=== PATIENT | male | born 1950 | race Caucasian/White ===

== ENCOUNTER 2018-01-04 08:43 | Outpatient (CLI) | payer MEDICARE, MEDICAID ==
[~2018-01-04] VITALS: Ht 179.1 cm; Wt 104.3 kg
[~2018-01-04 08:43] MED LIST: ACET-1015 PO; ALBU18HF2 INH; ATR0.5NEB IH; CETI-1 PO; CYCL-1 PO; DOCU-28 PO; FLUT16SP26 BOTHNARES; GABA-338 PO; GABA600T2 PO; LISI1TAB11 PO; MOME13HF IH; MONT10TA24 PO; MULT-1085 PO; OMEP20CA10 PO; SPIIN INH; TRAM50TA2 PO
[2018-01-04] MEDS ORDERED: albuterol 2.5 MG/3 ML nebule NEB ONE (09:20)
== END 2018-01-04 23:59 | disposition home or self-care (01) ==
LOC: RT 08:43
PROVIDERS: ATTEND Family Medicine
DX: J44.9 Chronic obstructive pulmonary disease, unspecified (principal); R06.09 Other forms of dyspnea; R05 Cough; F17.210 Nicotine dependence, cigarettes, uncomplicated
CPT/HCPCS: 94060; 94640; 94729

== ENCOUNTER 2018-01-30 15:11 | Emergency (ER) | payer MEDICARE, MEDICAID ==
[~2018-01-30] VITALS: Ht 180.3 cm; Wt 95.5 kg
[2018-01-30 15:53] LABS: BASOPHILS % (AUTO) 0.3 % (0-1); EOSINOPHILS # (AUTO) 0.3 X10'3 (0-0.9); EOSINOPHILS % (AUTO) 2.4 % (0-6); HEMATOCRIT 35.1 % (42.0-52.0); LYMPHOCYTES % (AUTO) 8.2 % (21-51); MEAN CORPUSCULAR HEMOGLOBIN 31.1 PG (27.0-31.0); MEAN CORPUSCULAR HGB CONC 34.3 % (33.0-36.5); MEAN CORPUSCULAR VOLUME 90.9 FL (78-98); MEAN PLATELET VOLUME 5.9 FL (7.4-10.4); MONOCYTES # (AUTO) 1.1 X10'3 (0-0.9); MONOCYTES % (AUTO) 8.8 % (2-12); NEUTROPHILS # (AUTO) 9.6 X10'3 (1.8-7.7); NEUTROPHILS % (AUTO) 80.3 % (42-75); PLATELET COUNT 454 X10'3 (140-440); RED BLOOD COUNT 3.86 X10'6 (4.70-6.10); RED CELL DISTRIBUTION WIDTH 13.7 % (11.5-14.5); WHITE BLOOD COUNT 11.9 X10'3 (4.5-11.0)
[2018-01-30 16:08] LABS: ALANINE AMINOTRANSFERASE 34 U/L (12-78); ALBUMIN/GLOBULIN RATIO 0.8 (1.1-1.5); ALKALINE PHOSPHATASE 75 IU/L (46-116); ANION GAP 15 (8-16); ASPARTATE AMINO TRANSFERASE 22 U/L (10-37); BILIRUBIN,TOTAL 0.6 MG/DL (0.1-1.0); BLOOD UREA NITROGEN 9 MG/DL (7-18); BUN/CREATININE RATIO 5.7 (5.4-32.0); CALCIUM 8.7 MG/DL (8.5-10.1); CHLORIDE 93 MMOL/L (99-107); CREATINE KINASE 123 U/L (39-308); CREATININE 1.57 MG/DL (0.60-1.10); GLUCOSE 120 MG/DL (70-104); SODIUM 131 MMOL/L (135-145); eGFR 44 ML/MIN
[2018-01-30] MEDS ORDERED: potassium Cl oral solution 20 MEQ/15 ML PO ONE (16:15)
[2018-01-30] MEDS ORDERED: normal saline 1000ml 1,000 ML IV SCH (16:15)
[2018-01-30] MEDS ORDERED: methylPREDNISolone sod succ 125mg/2ml vial IV ONE (16:20)
[2018-01-30] MEDS ORDERED: ipratropium/albuterol 3ml nebule NEB ONE (16:20)
[2018-01-30] MEDS ORDERED: PRED20TA PO (16:21)
[2018-01-30] MEDS ORDERED: LEVO500T89 PO (16:21)
[2018-01-30 16:49] VITALS: BP 132/66
== END 2018-01-30 17:39 | disposition home or self-care (01) ==
LOC: ER 15:11
DX: E86.0 Dehydration (principal); N28.9 Disorder of kidney and ureter, unspecified; E87.6 Hypokalemia; R55 Syncope and collapse; J20.9 Acute bronchitis, unspecified; J44.9 Chronic obstructive pulmonary disease, unspecified; Z88.0 Allergy status to penicillin; Z91.040 Latex allergy status; Z79.899 Other long term (current) drug therapy
CPT/HCPCS: 36415; 71045; 80053; 82550; 83605; 85025; 87040; 93005; 94640; 94760; 96374; 99285; J2930

== ENCOUNTER 2018-02-17 16:20 | Emergency (ER) | payer MEDICARE, MEDICAID ==
[~2018-02-17] VITALS: Wt 97.7 kg
[~2018-02-17 16:20] MED LIST changes: -ACET-1015 PO; -ATR0.5NEB IH; -CETI-1 PO; -MULT-1085 PO; -TRAM50TA2 PO
[2018-02-17 17:29] LABS: BASOPHILS # (AUTO) 0.1 X10'3 (0-0.2); BASOPHILS % (AUTO) 0.6 % (0-1); EOSINOPHILS # (AUTO) 0.2 X10'3 (0-0.9); EOSINOPHILS % (AUTO) 1.7 % (0-6); HEMATOCRIT 35.5 % (42.0-52.0); HEMOGLOBIN 12.1 g/dl (14.0-17.9); LYMPHOCYTES # (AUTO) 1.4 X10'3 (1.1-4.8); LYMPHOCYTES % (AUTO) 11.9 % (21-51); MEAN CORPUSCULAR HEMOGLOBIN 31.1 PG (27.0-31.0); MEAN CORPUSCULAR VOLUME 91.5 FL (78-98); MEAN PLATELET VOLUME 6.9 FL (7.4-10.4); MONOCYTES # (AUTO) 1.3 X10'3 (0-0.9); MONOCYTES % (AUTO) 11.2 % (2-12); NEUTROPHILS # (AUTO) 8.6 X10'3 (1.8-7.7); NEUTROPHILS % (AUTO) 74.6 % (42-75); PLATELET COUNT 439 X10'3 (140-440); RED BLOOD COUNT 3.88 X10'6 (4.70-6.10); RED CELL DISTRIBUTION WIDTH 14.5 % (11.5-14.5); WHITE BLOOD COUNT 11.5 X10'3 (4.5-11.0)
[2018-02-17 17:53] LABS: ALANINE AMINOTRANSFERASE 27 U/L (12-78); ALBUMIN 3.3 G/DL (3.4-5.0); ALBUMIN/GLOBULIN RATIO 0.9 (1.1-1.5); ALKALINE PHOSPHATASE 75 IU/L (46-116); ANION GAP 13 (8-16); ASPARTATE AMINO TRANSFERASE 23 U/L (10-37); BILIRUBIN,TOTAL 0.7 MG/DL (0.1-1.0); BLOOD UREA NITROGEN 13 MG/DL (7-18); BUN/CREATININE RATIO 9.2 (5.4-32.0); CALCIUM 9.1 MG/DL (8.5-10.1); CHLORIDE 102 MMOL/L (99-107); CREATININE 1.41 MG/DL (0.60-1.10); ETHANOL < 0.010 GM/DL (0.0-0.010); GLUCOSE 121 MG/DL (70-104); SODIUM 142 MMOL/L (135-145); TOTAL CARBON DIOXIDE 26.9 MMOL/L (24-32); eGFR 50 ML/MIN
[2018-02-17] MEDS ORDERED: normal saline 1000ML IV soln IVB ONE (18:05)
[2018-02-17] MEDS ORDERED: potassium Cl oral solution 20 MEQ/15 ML PO ONE (18:15)
[2018-02-17] MEDS ORDERED: LORazepam 2 mg/ml vial IM ONE (18:40)
[2018-02-17 19:16] LABS: URINE AMPHETAMINE SCREEN NEGATIVE (Neg); URINE BARBITUATE SCREEN NEGATIVE (Neg); URINE BENZODIAZEPINES SCREEN NEGATIVE (Neg); URINE CANNABINOID SCREEN POSITIVE (Neg); URINE COCAINE SCREEN NEGATIVE (Neg); URINE METHADONE SCREEN NEGATIVE (Neg); URINE OPIATE SCREEN NEGATIVE (Neg); URINE PHENCYCLIDINE SCREEN NEGATIVE (Neg)
[2018-02-17 19:21] LABS: CLARITY,URINE CLEAR (Clear); COLOR,URINE YELLOW (Yellow); GLUCOSE, URINE NEGATIVE (Neg); KETONES,URINE 40 mg/dl (Neg); LEUKOCYTE ESTERASE ,URINE NEGATIVE (Neg); NITRITES, URINE NEGATIVE (Neg); OCCULT BLOOD,URINE NEGATIVE (Neg); PROTEIN,URINE TRACE mg/dl (Neg); UROBILINOGEN,URINE 0.2 E.U/dL (0.2-1.0)
[2018-02-17 19:28] LABS: UA COLLECTION TYPE CLN CATCH MIDSTREAM
[2018-02-17 19:36] LABS: RBC,URINE NONE SEEN /HPF (0-2); WBC,URINE 0-4 /HPF (0-4)
[2018-02-17 19:37] LABS: BACTERIA,URINE NONE SEEN /HPF (Neg); HYALINE CASTS 0-3 /LPF (NEGATIVE); MUCUS STRANDS NONE SEEN /LPF (Neg); SQUAMOUS EPITHELIAL CELL,UR FEW /LPF (FEW)
[2018-02-17] MEDS ORDERED: cyclobenzaprine 10mg tablet PO PRN (20:15)
[2018-02-17] MEDS ORDERED: gabapentin 300mg capsule PO SCH (21:00)
[2018-02-17] MEDS: docusate sod 100mg capsule PO SCH (21:13)
[2018-02-17] MEDS: gabapentin 300mg capsule PO SCH (21:14)
[2018-02-17] MEDS ORDERED: magnesium oxide 400mg tablet PO ONE (23:30)
[2018-02-17] MEDS ORDERED: risperiDONE 0.5mg tablet PO ONE (23:35)
[2018-02-17] MEDS ORDERED: LORazepam 1 MG tablet PO ONE (23:35)
[2018-02-17 23:57] LABS: MAGNESIUM 1.1 MG/DL (1.5-2.4)
[2018-02-18] MEDS: ziprasidone 20mg capsule PO SCH ×3 (00:01→20:25)
[2018-02-18] MEDS ORDERED: LORazepam 1 MG tablet PO PRN (00:10)
[2018-02-18] MEDS: ipratropium 0.5 MG/2.5ML nebule IH SCH ×4 (02:00→19:09)
[2018-02-18] MEDS: albuterol 2.5 MG/3 ML nebule NEB SCH ×4 (07:00→19:08)
[2018-02-18] MEDS ORDERED: risperiDONE 0.5mg tablet PO ONE (08:00)
[2018-02-18] MEDS: fluticasone nasal spray 16GM bottle NS SCH (08:00)
[2018-02-18] MEDS: HYDROchlorothiazide 12.5mg capsule PO SCH (08:18)
[2018-02-18] MEDS: gabapentin 300mg capsule PO SCH ×4 (08:18→20:25)
[2018-02-18] MEDS: lisinopril 20mg tablet PO SCH (08:18)
[2018-02-18] MEDS: pantoprazole 40mg Tablet.DR PO SCH (08:18)
[2018-02-18] MEDS: montelukast 10mg tablet PO SCH (08:18)
[2018-02-18] MEDS: fluticasone/vilanterol 200mcg/25mcg inhaler IH SCH (09:47)
[2018-02-18] MEDS: docusate sod 100mg capsule PO SCH (20:25)
[2018-02-19] MEDS: ipratropium 0.5 MG/2.5ML nebule IH SCH ×2 (02:55→09:02)
[2018-02-19] MEDS: lisinopril 20mg tablet PO SCH (07:29)
[2018-02-19] MEDS: HYDROchlorothiazide 12.5mg capsule PO SCH (07:29)
[2018-02-19] MEDS: montelukast 10mg tablet PO SCH (07:29)
[2018-02-19] MEDS: ziprasidone 20mg capsule PO SCH ×2 (07:29→20:06)
[2018-02-19] MEDS: pantoprazole 40mg Tablet.DR PO SCH (07:29)
[2018-02-19] MEDS: gabapentin 300mg capsule PO SCH ×4 (07:29→20:06)
[2018-02-19] MEDS: fluticasone nasal spray 16GM bottle NS SCH (07:30)
[2018-02-19] MEDS: albuterol 2.5 MG/3 ML nebule NEB SCH (08:57)
[2018-02-19] MEDS: fluticasone/vilanterol 200mcg/25mcg inhaler IH SCH (09:11)
[2018-02-19] MEDS ORDERED: ipratropium 0.5 MG/2.5ML nebule IH PRN (09:40)
[2018-02-19] MEDS ORDERED: albuterol 2.5 MG/3 ML nebule NEB PRN (09:40)
[2018-02-19] MEDS: ipratropium/albuterol 3ml nebule NEB SCH ×3 (09:43→20:45)
[2018-02-19] MEDS ORDERED: potassium Cl 20 mEq SR tablet PO ONE (12:15)
[2018-02-19] MEDS: docusate sod 100mg capsule PO SCH (20:06)
[2018-02-20] MEDS: ipratropium/albuterol 3ml nebule NEB SCH ×2 (03:23→08:29)
[2018-02-20] MEDS: fluticasone nasal spray 16GM bottle NS SCH (08:02)
[2018-02-20] MEDS: montelukast 10mg tablet PO SCH (08:02)
[2018-02-20] MEDS: HYDROchlorothiazide 12.5mg capsule PO SCH (08:02)
[2018-02-20] MEDS: ziprasidone 20mg capsule PO SCH (08:02)
[2018-02-20] MEDS: lisinopril 20mg tablet PO SCH (08:02)
[2018-02-20] MEDS: pantoprazole 40mg Tablet.DR PO SCH (08:02)
[2018-02-20] MEDS: gabapentin 300mg capsule PO SCH (08:03)
[2018-02-20] MEDS: fluticasone/vilanterol 200mcg/25mcg inhaler IH SCH (08:28)
[2018-02-20 08:45] VITALS: BP 157/88
== END 2018-02-20 08:49 | disposition home or self-care (01) ==
LOC: ER 16:21
DX: R41.82 Altered mental status, unspecified (principal); E87.6 Hypokalemia; Z88.0 Allergy status to penicillin; Z79.899 Other long term (current) drug therapy
CPT/HCPCS: 36415; 70450; 80053; 80305; 80320; 80329; 81001; 83735; 84132; 84443; 84484; 85025; 94640; 94760; 96372; 99285; J2060; J7030; A4310; A4344

== ENCOUNTER 2018-02-20 08:30 | Inpatient (IN) | payer MEDICARE, MEDICAID ==
[~2018-02-20] VITALS: Ht 180.3 cm; Wt 97.7 kg
[2018-02-20] MEDS: ipratropium 0.5 MG/2.5ML nebule IH SCH ×4 (10:10→16:56)
[2018-02-20] MEDS ORDERED: mag hydrox/Alum hydrox/simeth 30ml oral suspension PO PRN (10:15)
[2018-02-20] MEDS ORDERED: magnesium hydroxide 30ml (MOM) UD suspension PO PRN (10:15)
[2018-02-20] MEDS ORDERED: acetaminophen 325mg tablet PO PRN (10:15)
[2018-02-20 11:07] VITALS: BP 131/87
[2018-02-20] MEDS: albuterol 2.5 MG/3 ML nebule NEB SCH ×2 (13:00→15:00)
[2018-02-20] MEDS ORDERED: gabapentin 300mg capsule PO SCH ×2 (13:00)
[2018-02-20] MEDS ORDERED: ipratropium/albuterol 3ml nebule NEB SCH (17:00)
[2018-02-20] MEDS: ipratropium/albuterol 3ml nebule NEB SCH (19:08)
[2018-02-20 19:32] VITALS: BP 132/92
[2018-02-20] MEDS ORDERED: olanzapine 10mg tablet PO SCH (21:00)
[2018-02-20] MEDS ORDERED: olanzapine 10mg tablet PO PRN (21:00)
[2018-02-20] MEDS: gabapentin 300mg capsule PO SCH (21:14)
[2018-02-20] MEDS: docusate sod 100mg capsule PO SCH (21:15)
[2018-02-20] MEDS: LORazepam 1 MG tablet PO PRN (23:10)
[2018-02-20] MEDS: cyclobenzaprine 10mg tablet PO PRN (23:10)
[2018-02-20] MEDS: traZODone 50mg tablet PO PRN (23:11)
[2018-02-21] MEDS: pantoprazole 40mg Tablet.DR PO SCH (07:08)
[2018-02-21] MEDS: ipratropium/albuterol 3ml nebule NEB SCH ×4 (07:13→19:21)
[2018-02-21 07:26] LABS: HEMOGLOBIN A1C 6.2 % (4.5-6.2)
[2018-02-21 07:27] LABS: CHOL/HDL RATIO 3.8 (0.00-4.99); CHOLESTEROL 138 MG/DL (0-200); HDL CHOLESTEROL 36 MG/DL (35-60); LDL CHOLESTEROL 84 MG/DL (50-100); TRIGLYCERIDES 86 MG/DL (20-135)
[2018-02-21 08:00] VITALS: BP 156/83
[2018-02-21] MEDS ORDERED: fluticasone/vilanterol 200mcg/25mcg inhaler IH SCH (08:00)
[2018-02-21] MEDS: HYDROchlorothiazide 12.5mg capsule PO SCH (08:32)
[2018-02-21] MEDS: lisinopril 20mg tablet PO SCH (08:32)
[2018-02-21] MEDS: gabapentin 300mg capsule PO SCH ×3 (08:32→20:30)
[2018-02-21] MEDS: montelukast 10mg tablet PO SCH (08:32)
[2018-02-21] MEDS: fluticasone nasal spray 16GM bottle NS SCH (08:32)
[2018-02-21] MEDS: potassium Cl 20 mEq SR tablet PO SCH (16:44)
[2018-02-21 19:00] VITALS: BP 126/76
[2018-02-21] MEDS: magnesium oxide 400mg tablet PO SCH (20:30)
[2018-02-21] MEDS: docusate sod 100mg capsule PO SCH (20:30)
[2018-02-21] MEDS: traZODone 50mg tablet PO PRN (20:31)
[2018-02-21] MEDS: cyclobenzaprine 10mg tablet PO PRN (20:52)
[2018-02-22] MEDS: pantoprazole 40mg Tablet.DR PO SCH (07:45)
[2018-02-22] MEDS: ipratropium/albuterol 3ml nebule NEB SCH ×4 (07:47→19:49)
[2018-02-22 08:00] VITALS: BP 136/95
[2018-02-22 08:04] LABS: ALBUMIN 3.2 G/DL (3.4-5.0); ANION GAP 10 (8-16); BLOOD UREA NITROGEN 10 MG/DL (7-18); BUN/CREATININE RATIO 9.3 (5.4-32.0); CALCIUM 9.3 MG/DL (8.5-10.1); CHLORIDE 101 MMOL/L (99-107); CREATININE 1.08 MG/DL (0.60-1.10); GLUCOSE 114 MG/DL (70-104); MAGNESIUM 1.5 MG/DL (1.5-2.4); POTASSIUM 3.7 MMOL/L (3.5-5.1); SODIUM 139 MMOL/L (135-145); TOTAL CARBON DIOXIDE 27.7 MMOL/L (24-32); eGFR 68 ML/MIN
[2018-02-22] MEDS: gabapentin 300mg capsule PO SCH ×3 (08:24→20:27)
[2018-02-22] MEDS: lisinopril 20mg tablet PO SCH (08:24)
[2018-02-22] MEDS: potassium Cl 20 mEq SR tablet PO SCH ×2 (08:24→17:41)
[2018-02-22] MEDS: HYDROchlorothiazide 12.5mg capsule PO SCH (08:24)
[2018-02-22] MEDS: aspirin 81mg tablet.DR PO SCH (08:24)
[2018-02-22] MEDS: montelukast 10mg tablet PO SCH (08:24)
[2018-02-22] MEDS: magnesium oxide 400mg tablet PO SCH ×2 (08:24→20:27)
[2018-02-22] MEDS: fluticasone nasal spray 16GM bottle NS SCH (10:58)
[2018-02-22 19:35] VITALS: BP 148/91
[2018-02-22] MEDS: docusate sod 100mg capsule PO SCH (20:27)
[2018-02-22] MEDS: LORazepam 1 MG tablet PO PRN (20:27)
[2018-02-22] MEDS: traZODone 50mg tablet PO PRN (20:27)
[2018-02-22] MEDS: cyclobenzaprine 10mg tablet PO PRN (20:33)
[2018-02-23] MEDS: ipratropium/albuterol 3ml nebule NEB SCH ×4 (07:00→19:30)
[2018-02-23 08:00] VITALS: BP 124/81
[2018-02-23] MEDS: potassium Cl 20 mEq SR tablet PO SCH ×2 (10:23→17:50)
[2018-02-23] MEDS: cyclobenzaprine 10mg tablet PO PRN ×2 (10:23→21:08)
[2018-02-23] MEDS: gabapentin 300mg capsule PO SCH ×3 (10:24→21:05)
[2018-02-23] MEDS: docusate sod 100mg capsule PO SCH ×2 (10:24→21:05)
[2018-02-23] MEDS: HYDROchlorothiazide 12.5mg capsule PO SCH (10:24)
[2018-02-23] MEDS: lisinopril 20mg tablet PO SCH (10:25)
[2018-02-23] MEDS: LORazepam 1 MG tablet PO PRN (10:25)
[2018-02-23] MEDS: aspirin 81mg tablet.DR PO SCH (10:25)
[2018-02-23] MEDS: magnesium oxide 400mg tablet PO SCH ×2 (10:25→21:05)
[2018-02-23] MEDS: pantoprazole 40mg Tablet.DR PO SCH (10:26)
[2018-02-23] MEDS: montelukast 10mg tablet PO SCH (10:26)
[2018-02-23] MEDS: fluticasone nasal spray 16GM bottle NS SCH (10:37)
[2018-02-23 19:00] VITALS: BP 131/84
[2018-02-23] MEDS: traZODone 50mg tablet PO PRN (21:05)
[2018-02-24] MEDS: ipratropium/albuterol 3ml nebule NEB SCH ×4 (07:38→18:37)
[2018-02-24 08:00] VITALS: BP 129/89
[2018-02-24] MEDS: lisinopril 20mg tablet PO SCH (08:24)
[2018-02-24] MEDS: gabapentin 300mg capsule PO SCH ×3 (08:25→20:38)
[2018-02-24] MEDS: HYDROchlorothiazide 12.5mg capsule PO SCH (08:26)
[2018-02-24] MEDS: aspirin 81mg tablet.DR PO SCH (08:26)
[2018-02-24] MEDS: montelukast 10mg tablet PO SCH (08:26)
[2018-02-24] MEDS: pantoprazole 40mg Tablet.DR PO SCH (08:27)
[2018-02-24] MEDS: magnesium oxide 400mg tablet PO SCH ×2 (08:27→20:38)
[2018-02-24] MEDS: fluticasone nasal spray 16GM bottle NS SCH (08:29)
[2018-02-24] MEDS: potassium Cl 20 mEq SR tablet PO SCH ×2 (08:40→20:38)
[2018-02-24] MEDS: docusate sod 100mg capsule PO SCH (20:38)
[2018-02-25] MEDS: ipratropium/albuterol 3ml nebule NEB SCH ×4 (07:36→19:28)
[2018-02-25 08:00] VITALS: BP 126/101
[2018-02-25] MEDS: lisinopril 20mg tablet PO SCH (08:28)
[2018-02-25] MEDS: gabapentin 300mg capsule PO SCH ×3 (08:28→20:44)
[2018-02-25] MEDS: potassium Cl 20 mEq SR tablet PO SCH ×2 (08:28→16:53)
[2018-02-25] MEDS: HYDROchlorothiazide 12.5mg capsule PO SCH (08:29)
[2018-02-25] MEDS: pantoprazole 40mg Tablet.DR PO SCH (08:29)
[2018-02-25] MEDS: aspirin 81mg tablet.DR PO SCH (08:29)
[2018-02-25] MEDS: magnesium oxide 400mg tablet PO SCH ×2 (08:30→20:49)
[2018-02-25] MEDS: montelukast 10mg tablet PO SCH (08:30)
[2018-02-25] MEDS: fluticasone nasal spray 16GM bottle NS SCH (08:35)
[2018-02-25 19:00] VITALS: BP 143/94
[2018-02-25] MEDS: docusate sod 100mg capsule PO SCH (20:43)
[2018-02-25] MEDS: traZODone 50mg tablet PO PRN (20:44)
== END 2018-02-26 02:20 | disposition left against medical advice (07) | DRG 885 ==
LOC: ADULT MH 08:30
PROVIDERS: ADMIT Psychiatry & Neurology Psychiatry; ATTEND Psychiatry & Neurology Psychiatry
DX: F29 Unspecified psychosis not due to a substance or known physiological condition (principal); G93.40 Encephalopathy, unspecified; G31.84 Mild cognitive impairment of uncertain or unknown etiology; E83.42 Hypomagnesemia; J44.9 Chronic obstructive pulmonary disease, unspecified; E87.6 Hypokalemia; M54.9 Dorsalgia, unspecified; I10 Essential (primary) hypertension; K21.9 Gastro-esophageal reflux disease without esophagitis; F12.90 Cannabis use, unspecified, uncomplicated; Z53.21 Procedure and treatment not carried out due to patient leaving prior to being seen by health care provider; Z81.8 Family history of other mental and behavioral disorders; Z82.0 Family history of epilepsy and other diseases of the nervous system
CPT/HCPCS: 36415; 70544; 70551; 80048; 80061; 83036; 83735; 87070; 94640; 94760; J3490

== ENCOUNTER 2018-05-11 10:08 | Outpatient (CLI) | payer MEDICARE, MEDICAID ==
[2018-05-11 10:41] LABS: ABG BASE EXCESS 0.1 mmol/L (-2.0-3.0); ABG HCO3 24.2 mmol/L (22.0-26.0); ABG OXYGEN SATURATION 94.3 % (95-98); ABG PCO2 (T) 37.4 mmHg (35.0-48.0); ABG PH (T) 7.428 (7.350-7.450); ABG PO2 (T) 70.6 mmHg (83-108); ALLEN'S TEST Positive; FCOHb 0.7 % (0.5-1.5); FMetHb 0.2 % (0.3-1.12); FO2Hb 93.5 % (94-100)
== END 2018-05-11 23:59 | disposition home or self-care (01) ==
LOC: RT 10:08
PROVIDERS: ATTEND Family Medicine
DX: J43.9 Emphysema, unspecified (principal); R06.09 Other forms of dyspnea; F17.200 Nicotine dependence, unspecified, uncomplicated; I10 Essential (primary) hypertension
CPT/HCPCS: 36600; 82803; 85018; 94010; 94727; 94729

== ENCOUNTER 2024-06-04 07:45 | Day surgery (SDC) | payer MEDICARE, MEDICAID ==
[2024-05-31 16:12] LABS: BASOPHILS # (AUTO) 0.1 X10'3 (0-0.2); BASOPHILS % (AUTO) 0.9 % (0-1); EOSINOPHILS # (AUTO) 0.2 X10'3 (0-0.9); EOSINOPHILS % (AUTO) 1.3 % (0-6); LYMPHOCYTES % (AUTO) 22.1 % (21-51); MEAN CORPUSCULAR HEMOGLOBIN 31.5 PG (27.0-31.0); MEAN CORPUSCULAR HGB CONC 33.1 g/dL (33.0-36.5); MEAN CORPUSCULAR VOLUME 95.2 FL (78-98); MEAN PLATELET VOLUME 6.8 FL (7.4-10.4); MONOCYTES # (AUTO) 1.1 X10'3 (0-0.9); MONOCYTES % (AUTO) 8.4 % (2-12); NEUTROPHILS % (AUTO) 67.3 % (42-75); PRE OP HEMATOCRIT 37.7 % (42.0-52.0); PRE OP HEMOGLOBIN 12.5 g/dL (14.0-17.9); PRE OP PLATELET COUNT 499 X10'3 (140-440); PRE OP WHITE BLOOD COUNT 13.4 10'3 (4.8-10.8); RED BLOOD COUNT 3.96 X10'6 (4.70-6.10); RED CELL DISTRIBUTION WIDTH 13.8 % (11.5-14.5)
[2024-05-31 16:30] LABS: ALBUMIN/GLOBULIN RATIO 1.1 (1.1-1.5); ALKALINE PHOSPHATASE 71 IU/L (46-116); BLOOD UREA NITROGEN 10 MG/DL (7-18); BUN/CREATININE RATIO 9.7 (10.0-20.0); CALCIUM 9.1 MG/DL (8.5-10.1); CHLORIDE 97 MMOL/L (99-107); CREATININE 1.03 MG/DL (0.60-1.10); PRE OP ALT 39 U/L (30-65); PRE OP ANION GAP 9 (8-16); PRE OP AST 26 U/L (10-37); PRE OP BILIRUB, TOTAL 0.5 MG/DL (0.0-1.0); PRE OP GLUCOSE 99 MG/DL (70-104); PRE OP POTASSIUM 3.7 MMOL/L (3.4-5.1); PRE OP SODIUM 135 MMOL/L (135-145); TOTAL CARBON DIOXIDE 29.5 MMOL/L (24-32); TOTAL PROTEIN 7.8 G/DL (6.4-8.2); eGFR 71 ML/MIN
[~2024-06-04] VITALS: Ht 180.3 cm; Wt 104.0 kg
[2024-06-04] MEDS: clindamycin-Cleocin 900mg/D5W 50 ML IV ONE (05:30)
[~2024-06-04 07:45] MED LIST changes: +ACET-2006 PO; +ATOR40TA PO; +AZEL137S4 BOTHNARES; +BUPIVAcaine/PF 2.5mg/ml (0.25%) 10ml vial ONE; +CETI10TA14 PO; -CYCL-1 PO; -DOCU-28 PO; +FLUT1BLS4 INH; -GABA600T2 PO; +IPRA3AMP31 NEB; -LISI1TAB11 PO; +LISI1TAB51 PO; -MOME13HF IH; +MONT-40 PO; -MONT10TA24 PO; +MULT-1085 PO; -OMEP20CA10 PO; -SPIIN INH
[2024-06-04 08:00] VITALS: BP 137/71; PULSE 77; RESP 15; RESP 16; TEMP 98.4; O2SAT 97
[2024-06-04] MEDS: famotidine 20mg tablet PO ONE (08:38)
[2024-06-04] MEDS: ringers solution, lacted 1,000 ML IV SCH (08:38)
[2024-06-04 11:32] VITALS: BP 142/77; PULSE 71; RESP 16; O2SAT 98
[2024-06-04 11:42] VITALS: BP 139/74; PULSE 74; RESP 15; O2SAT 98
[2024-06-04] MEDS: BUPIVAcaine/PF 2.5mg/ml (0.25%) 10ml vial ONE (11:48)
[2024-06-04] MEDS: LIDOcaine 2% (20mg/ml) 5ml vial ONE (11:48)
[2024-06-04 11:52] VITALS: BP 135/71; PULSE 76; RESP 15; O2SAT 98
== END 2024-06-04 11:52 | disposition home or self-care (01) ==
LOC: PAS 07:45
PROVIDERS: ATTEND Orthopaedic Surgery Hand Surgery
DX: G56.01 Carpal tunnel syndrome, right upper limb (principal); M18.11 Unilateral primary osteoarthritis of first carpometacarpal joint, right hand; J44.9 Chronic obstructive pulmonary disease, unspecified; Z79.899 Other long term (current) drug therapy; Z88.0 Allergy status to penicillin; Z91.040 Latex allergy status
CPT/HCPCS: 36415; 64721; 80053; 82948; 85025; A4615; J2001; J3490; J7120; Z7512; Z7610; A4215; A6222; A6449

== ENCOUNTER 2025-03-26 12:33 | Outpatient (CLI) | payer MEDICARE, MEDICAID ==
[~2025-03-26 12:33] MED LIST changes: -BUPIVAcaine/PF 2.5mg/ml (0.25%) 10ml vial ONE
--- NOTE | 2025-03-26 16:29 | RADIOLOGY REPORT ---
CLINICAL INFORMATION: Right shoulder pain. TECHNIQUE: Multisequence multiplanar MRI images of the right shoulder were obtained without contrast . COMPARISON: None FINDINGS: Acromioclavicular joint: There is moderate acromioclavicular hypertrophy and moderate edema. There is Type 2 acromion. Small to moderate amount of fluid in the subacromial / subdeltoid bursa. Rotator cuff tendons: Mild tendinosis of the distal supraspinatus and infraspinatus tendons. Partial- thickness to near full-thickness tear of the supraspinatus tendon near its insertion measuring up to 1.5 cm in AP dimension and up to 0.8 cm in transverse dimension, demonstrating bursal surface communi cation possible small articular surface communication. Partial-thickness articular surface tear of th e distal subscapularis tendon measuring up to 1.3 cm in craniocaudal dimension and 1.5 cm in proximal to distal dimension, with portions of the tear involving up to 50% of the tendon thickness. Teres mi nor tendon is intact. Biceps tendon: Medial dislocation of the proximal long head biceps tendon along its proximal course. Labrum: Fraying of the superior labrum. Bones: No fracture or focal marrow contusion. Muscles: Normal muscle bulk. No atrophy. Other: No other significant findings. IMPRESSION: 1. Rotator cuff tendinosis. Partial-thickness to near full-thickness bursal surface tear involving th e supraspinatus tendon near its insertion. Possible small articular surface communication of the tea r. 2. Partial-thickness articular surface tear of the distal subscapularis tendon. 3. Moderate acromioclavicular hypertrophy with small to moderate fluid in the subacromial/subdeltoid bursa. 4. Fraying of the superior labrum. 5. Medial dislocation of the long head biceps tendon along its proximal course.
--- NOTE | 2025-03-26 19:45 | RADIOLOGY REPORT ---
EXAM: MR MRI LUMBAR SPINE INDICATION: SPINAL STENOSIS,UNSPECIFIED/PAIN IN RIGHT SHOULDER TECHNIQUE: Multiplanar, multisequence MR images of the lumbar spine were obtained without the adminis tration of IV contrast. COMPARISON: None FINDINGS: [ANATOMY]: Five lumbar-type vertebral bodies are present. The most inferior well-formed disc space wi ll be referred to as L5-S1 for purposes of numbering in this report. [VERTEBRAL BODIES]: No endplate compression fracture. Opposing Modic type 1 endplate degenerative ch jimbo at L3-4. [SPINAL CANAL]: The conus medullaris is normal in signal and morphology, terminating at the L1-L2 lev el. At least moderate to severe spinal canal narrowing at L2-3, L3-4 secondary to a combination of li gamentum flavum buckling and posterior disc osteophyte complexes [FACETS]: [id number] bilateral facet arthropathy [OTHER]: None. LEVEL BY LEVEL DISCUSSION: [T12-L1]: Unremarkable. [L1-L2]: Unremarkable. [L2-L3]: Broad-based bilateral inferior foraminal extension with mild bilateral facet arthropathy. Se jelly bilateral foraminal narrowing. Spinal canal measures down to 10 mm. [L3-L4]: Severe bilateral foraminal narrowing. Facet arthropathy. Circumferential disc bulge measuri ng 4-5 mm. Severe spinal canal narrowing with ligamentum flavum hypertrophy. Spinal canal measures d own to 6 mm. [L4-L5]: Trace disc bulge. Bilateral facet arthropathy. Moderate to severe bilateral foraminal narr owing [L5-S1]: No spinal canal or foraminal narrowing IMPRESSION: 1. Multilevel degenerative change as detailed above.Spinal canal 2. Narrowing most conspicuous at L3-4 secondary to a combination of disc herniation and ligamentum fl avum buckling.
== END 2025-03-26 23:59 | disposition home or self-care (01) ==
LOC: MRI02 12:33
PROVIDERS: ATTEND Family Medicine
DX: S43.084A Other dislocation of right shoulder joint, initial encounter (principal); M48.00 Spinal stenosis, site unspecified; M25.511 Pain in right shoulder; M51.26 Other intervertebral disc displacement, lumbar region; M47.816 Spondylosis without myelopathy or radiculopathy, lumbar region; X58.XXXA Exposure to other specified factors, initial encounter; Y93.89 Activity, other specified; Y92.89 Other specified places as the place of occurrence of the external cause; Y99.8 Other external cause status
CPT/HCPCS: 72148; 73221

== ENCOUNTER 2025-07-30 13:40 | Outpatient (CLI) | payer MEDICARE, MEDICAID ==
--- NOTE | 2025-07-30 15:09 | RADIOLOGY REPORT ---
EXAM: CT CT CHEST LOW DOSE INDICATION: NICOTINE DEPENDENCE, CIGARETTES, UNCOMPLICATED TECHNIQUE: Low-dose noncontrast CT of the lungs have been obtained. All CT scans at this facility use dose modulation, iterative reconstruction, and/or weight based dosing when appropriate to reduce radiation dose to as low as reasonably achievable. COMPARISON: None FINDINGS: LOWER NECK: Unremarkable LYMPH NODES/MEDIASTINUM: No abnormal lymph nodes by CT size criteria CARDIOVASCULAR: Normal cardiac size. No pericardial effusion. No aneurysmal dilatation of the great vessels. Coronary artery calcifications present. UPPER ABDOMEN: Limited evaluation secondary to photon starvation. Unremarkable. MUSCULOSKELETAL: Multilevel degenerative change of the visualized spine. No acute fracture or aggressive focal osseous lesion. CHEST WALL: Unremarkable. LUNG/PLEURAL SPACE: Scattered colonic diverticula. Mild scattered centrilobular emphysema. Small amount of peribronchovascular thickening of the posterior basilar segment, right lower lobe. Elevation of the right hemidiaphragm. 5 mm oval-shaped pulmonary nodule in the apical posterior segment, left upper lobe. Small juxtapleural pulmonary nodules measuring up to 5 mm, benign. No consolidation, suspicious focal airspace opacity, or suspicious nodules. No pleural effusion or pneumothorax. IMPRESSION: 1. No suspicious pulmonary nodule. On average 5 mm pulmonary nodule of the periphery of the left upper lobe, apical posterior segment. Additional small less than 4 mm micronodule 2. Small amount of peribronchovascular thickening of the posterior basilar segment, right lower lobe. Imaging finding may be compatible with scarring given inconspicuous traction bronchiolectasis 3. Scattered colonic diverticula. Mild centrilobular emphysema. 4. Coronary artery calcification. LUNG-RADS: 2- Benign Appearance or Behavior RECOMMENDATION: Annual low dose lung screening CT is recommended for 15 years after smoking cessation or until age 77. CITATION: Lung cancer screening categorization and recommendations per [employer] Lung-RADS Version 1.0 (http://[email or web address].[email or web address] [email or web address]).
== END 2025-07-30 23:59 | disposition home or self-care (01) ==
LOC: RAD 13:40
PROVIDERS: ATTEND Student in an Organized Health Care Education/Training Program
DX: Z12.2 Encounter for screening for malignant neoplasm of respiratory organs (principal); J43.2 Centrilobular emphysema; J98.09 Other diseases of bronchus, not elsewhere classified; J98.6 Disorders of diaphragm; F17.210 Nicotine dependence, cigarettes, uncomplicated; I25.10 Atherosclerotic heart disease of native coronary artery without angina pectoris; M47.814 Spondylosis without myelopathy or radiculopathy, thoracic region; K57.30 Diverticulosis of large intestine without perforation or abscess without bleeding; R91.8 Other nonspecific abnormal finding of lung field
CPT/HCPCS: 71271